=== PATIENT | female | born 1960 | race Two or more races ===

== ENCOUNTER 2017-06-28 09:11 | Day surgery (SDC) | payer BC ==
[~2017-06-28 09:11] MED LIST: Lactated Ringers 1,000 ML IV SCH
--- NOTE | 2017-06-28 10:11 | PCM.PREANE ---
Preanesthetic Assessment - Anesthesia/Transfusion/Family Hx Anesthesia History: Prior Anesthesia Without Reaction Family History of Anesthesia Reaction: No Transfusion History: No Prior Transfusion(s) Intubation History: Unknown - Review of Systems General: No Symptoms Pulmonary: No Symptoms Cardiovascular: No Symptoms Gastrointestinal: Abdominal Pain Neurological: No Symptoms Other: Reports: None - Physical Assessment NPO Status Date: 06/27/17 NPO Status Time: 16:00 O2 Sat by Pulse Oximetry: 97 Respiratory Rate: 16 Vital Signs: Last Vital Signs Temp 36.4 C 06/28/17 09:35 Pulse 66 06/28/17 09:35 Resp 16 06/28/17 09:35 BP 140/64 06/28/17 09:35 Pulse Ox 97 06/28/17 09:35 Height: 1.57 m Weight: 58.967 kg ASA Class: 2 Mental Status: Alert & Oriented x3 Airway Class: Mallampati = 2 Dentition: Reports: Normal Dentition Thyro-Mental Finger Breadths: 3 Mouth Opening Finger Breadths: 2 ROM/Head Extension: Full Lungs: Clear to Auscultation, Normal Respiratory Effort Cardiovascular: Regular Rate, Regular Rhythm - Allergies Allergies/Adverse Reactions: Allergies Allergy/AdvReac Type Severity Reaction Status Date / Time No Known Allergies Allergy Verified 06/23/17 14:27 - Blood Blood Available: No - Anesthesia Plan Pre-Op Medication Ordered: None - Acknowledgements Anesthesia Type Planned: MAC Pt an Appropriate Candidate for the Planned Anesthesia: Yes Alternatives and Risks of Anesthesia Discussed w Pt/Guardian: Yes Pt/Guardian Understands and Agrees with Anesthesia Plan: Yes PreAnesthesia Questionnaire HEENT History: Reports: Other (See Below) Other HEENT History: wears glasses Cardiovascular History: Reports: High Cholesterol Gastrointestinal History: Reports: GERD, Helicobacter Pylori - Past Surgical History Head Surgeries/Procedures: Reports: None GI Surgical History: Reports: Colonoscopy - SUBSTANCE USE Smoking Status *Q: Never Smoker Recreational Drug Use History: No - HOME MEDS Home Medications: Home Meds Omeprazole 20 mg PO DAILY 06/23/17 [History] Simvastatin [Zocor] 20 mg PO DAILY 06/23/17 [History] - CURRENT (IN HOUSE) MEDS Current Meds: Current Medications Lactated Ringer's (Ringers, Lactated) 1,000 mls @ 125 mls/hr IV ASD[facility]RECTED [facility] Last Admin: 06/28/17 09:50 Dose: 125 mls/hr
[2017-06-28] MEDS ORDERED: Midazolam 1 MG/ML 2 ML SDV ONE (12:59)
[2017-06-28] MEDS ORDERED: Lidocaine 2% 5 ML SDV ONE (12:59)
[2017-06-28] MEDS ORDERED: Propofol 200 MG/20 ML SDV ONE ×2 (12:59→13:21)
--- NOTE | 2017-06-28 13:47 | PCM.OPNOTE ---
- General Post-Op/Procedure Note Date of Surgery/Procedure: 06/28/17 Operative Procedure(s): egd w bx Findings: see dict [id number] Pre Op Diagnosis: h pylori infection Post-Op Diagnosis: gerd Anesthesia Technique: Moderate Sedation Primary Surgeon: Behzad Flower Pathology: sent Complications: None Condition: Good
--- NOTE | 2017-06-28 19:29 | OR ---
SURGEON: Behzad Flower MD DATE OF PROCEDURE: 06/28/2017 PREOPERATIVE DIAGNOSIS: Helicobater pylori infection. POSTOPERATIVE DIAGNOSIS: Gastroesophageal reflux disease. PROCEDURE PERFORMED: EGD with biopsy. COMPLICATIONS: None. FINDINGS: 1. The patient was easily sedated with [employer] on Diprivan. The patient was soundly snoring. 2. The patient's oropharynx and proximal esophagus were free of disease stricture or inflammation. GE junction at 35 was very inflamed and consistent with GERD. Stomach rugae was normal in appearance. No blood, ulcer, food, or bile observed. Antrum was with minimal inflammation. Duodenum was grossly normal in appearance. Scope retrieved back to the stomach. Retroflexed look at the fundus of stomach, had no etiology. Biopsy done at antrum, body, and GE junction at 40, and sucked out the air while scope pulling out. DESCRIPTION OF PROCEDURE: The patient was taken to the endoscopy room, and with the [employer], Diprivan was administered. A well-lubricated EGD scope was gently inserted through the oropharynx, down the esophagus, passing through the gastroesophageal junction, into the stomach. The mucosa was examined upon the passage. Any etiology will be noted. Once in the stomach, we continued to advance to the distal antrum, passed through the pylorus into the second portion of the duodenum. Again, the mucosa was examined for any abnormality and etiology. The scope was then retrieved back to the stomach and then retroflexed to look at the fundus of the stomach. If a biopsy was indicated, we will biopsy the antrum, body, and gastroesophageal junction. The air will be sucked out while the scope is retrieved to reduce the patient's discomfort. The patient tolerated the procedure well. There were no intraoperative complications. Dr. Flower was present through the whole procedure. Prior to surgery, a time-out had been called, the patient identified, procedure identified and antibiotic administered. ERROL / ELROY /[id number]
== END 2017-06-28 14:30 | disposition home or self-care (01) ==
LOC: MW.SDS 09:11
PROVIDERS: ATTEND Surgery
DX: K29.50 Unspecified chronic gastritis without bleeding (principal); K20.9 Esophagitis, unspecified; K21.9 Gastro-esophageal reflux disease without esophagitis; E78.5 Hyperlipidemia, unspecified; Z79.899 Other long term (current) drug therapy; Z98.890 Other specified postprocedural states
CPT/HCPCS: 43239; J2250; J7120; 00740; 88305; 88312; J2704